=== PATIENT | female | born 1985 | race Caucasian/White ===

== ENCOUNTER 2023-02-17 03:31 | Emergency (ER) | payer MEDICAID, OTHER ==
[~2023-02-17] VITALS: Ht 167.6 cm; Wt 90.0 kg
[2023-02-17 03:36] VITALS: TEMP 97.7
[2023-02-17 04:31] LABS: BASOPHILS % (AUTO) 0.2 % (0.0-2.0); EOSINOPHILS % (AUTO) 0.3 % (1.0-6.0); HEMOGLOBIN 13.4 g/dL (12.0-16.0); LYMPHOCYTES # (AUTO) 1.7 K/uL (1.0-4.8); LYMPHOCYTES % (AUTO) 26.6 % (22.0-44.0); MEAN CORPUSCULAR HEMOGLOBIN 30.6 pg (26.0-34.0); MEAN CORPUSCULAR HGB CONC 34.3 G/dL (31.0-37.0); MEAN CORPUSCULAR VOLUME 89 fL (80-100); MONOCYTES # (AUTO) 0.6 K/uL (0.1-1.0); MONOCYTES % (AUTO) 9.8 % (2.0-9.0); NEUTROPHILS # (AUTO) 4.1 K/uL (1.8-7.7); NEUTROPHILS % (AUTO) 63.1 % (40.0-70.0); PLATELET COUNT (AUTO) 220 K/uL (150-450); RED BLOOD CELL COUNT(AUTO) 4.37 MIL/uL (4.00-5.20); RED CELL DISTRIBUTION WIDTH 13.3 % (11.5-14.5)
[2023-02-17 04:40] LABS: ANION GAP 13 mmol/L (8-16); CALCIUM, TOTAL 8.9 mg/dL (8.8-10.5); CARBON DIOXIDE 24 mmol/L (22-29); CHLORIDE 104 mmol/L (98-107); CREATININE 0.89 mg/dL (0.60-1.30); GLOMERULAR FILTR. RATE CALC > 60 mL/min (>60); GLUCOSE,RANDOM 97 mg/dL (70-110); POTASSIUM 3.6 mmol/L (3.5-5.1); SODIUM SERUM 141 mmol/L (136-145)
[2023-02-17 04:45] LABS: ALANINE AMINOTRANSFERASE 26 U/L (12-78); ALBUMIN 3.8 g/dL (3.4-5.0); ALKALINE PHOSPHATASE 76 U/L (46-116); ASPARTATE AMINOTRANSFERASE 25 U/L (15-37); BILIRUBIN,TOTAL 0.6 mg/dL (0.1-1.0); TOTAL PROTEIN, SERUM 7.4 g/dL (6.4-8.2)
[2023-02-17 08:28] LABS: COVID AG,FIA SOURCE NASAL SWAB
[2023-02-17] MEDS ORDERED: OLANZapine 5 MG TABLET PO ONE (08:30)
[2023-02-17 09:16] VITALS: BP 132/88; PULSE 87; RESP 18
== END 2023-02-17 10:13 | disposition home or self-care (01) ==
LOC: EMS 03:32
DX: R44.0 Auditory hallucinations (principal); F32.A Depression, unspecified; F17.210 Nicotine dependence, cigarettes, uncomplicated; F15.90 Other stimulant use, unspecified, uncomplicated; F12.90 Cannabis use, unspecified, uncomplicated; Z81.8 Family history of other mental and behavioral disorders; Z20.822 Contact with and (suspected) exposure to COVID-19; Z98.890 Other specified postprocedural states
CPT/HCPCS: 99283; 87426; 80053; 85025; G0480

== ENCOUNTER 2023-03-25 14:30 | Inpatient (IN) | payer MEDICAID ==
[~2023-03-25] VITALS: Ht 162.6 cm; Wt 77.6 kg
[2023-03-25] MEDS ORDERED: HALOPERIDOL LACTATE 5 MG/ML VIAL IM ONE (16:15)
[2023-03-25] MEDS ORDERED: LORazepam 2 MG/ML VIAL IM ONE (16:15)
[2023-03-25] MEDS ORDERED: DiphenhydrAMINE HCL 50 MG/ML VIAL IM ONE (16:15)
[2023-03-25] MEDS ORDERED: ZIPRASIDONE MESYLATE 20 MG/VIAL IM ONE (16:45)
[2023-03-25] MEDS ORDERED: LORazepam 2 MG TABLET PO PRN (18:15)
[2023-03-25] MEDS ORDERED: OLANZapine 5 MG RAPDIS TABLET PO PRN (18:15)
[2023-03-25 19:39] LABS: BASOPHILS % (AUTO) 0.1 % (0.0-2.0); EOSINOPHILS % (AUTO) 0.1 % (1.0-6.0); HEMATOCRIT 38.8 % (36-46); HEMOGLOBIN 13.4 g/dL (12.0-16.0); LYMPHOCYTES # (AUTO) 1.5 K/uL (1.0-4.8); LYMPHOCYTES % (AUTO) 15.7 % (22.0-44.0); MEAN CORPUSCULAR HGB CONC 34.5 G/dL (31.0-37.0); MEAN CORPUSCULAR VOLUME 90 fL (80-100); MONOCYTES # (AUTO) 0.5 K/uL (0.1-1.0); MONOCYTES % (AUTO) 5.3 % (2.0-9.0); NEUTROPHILS # (AUTO) 7.4 K/uL (1.8-7.7); NEUTROPHILS % (AUTO) 78.8 % (40.0-70.0); PLATELET COUNT (AUTO) 236 K/uL (150-450); RED BLOOD CELL COUNT(AUTO) 4.31 MIL/uL (4.00-5.20); RED CELL DISTRIBUTION WIDTH 13.8 % (11.5-14.5)
[2023-03-25 19:48] LABS: ANION GAP 15 mmol/L (8-16); CALCIUM, TOTAL 9.1 mg/dL (8.8-10.5); CARBON DIOXIDE 25 mmol/L (22-29); CHLORIDE 103 mmol/L (98-107); CREATININE 0.97 mg/dL (0.60-1.30); GLOMERULAR FILTR. RATE CALC > 60 mL/min (>60); GLUCOSE,RANDOM 107 mg/dL (70-110); POTASSIUM 3.6 mmol/L (3.5-5.1); SODIUM SERUM 143 mmol/L (136-145)
[2023-03-25 19:53] LABS: ALANINE AMINOTRANSFERASE 21 U/L (12-78); ALBUMIN 3.7 g/dL (3.4-5.0); ALKALINE PHOSPHATASE 78 U/L (46-116); ASPARTATE AMINOTRANSFERASE 30 U/L (15-37); BILIRUBIN,TOTAL 0.7 mg/dL (0.1-1.0); TOTAL PROTEIN, SERUM 7.3 g/dL (6.4-8.2)
[2023-03-25 22:24] LABS: COVID AG,FIA SOURCE NASAL SWAB
[2023-03-26 02:00] VITALS: BP 126/72; PULSE 70; RESP 17; TEMP 97.8; O2SAT 98
[2023-03-26] MEDS ORDERED: MAG HYDROX/AL HYDROX/SIMETH ES 30 ML SUSPENSION UDCUP PO PRN (07:15)
[2023-03-26] MEDS ORDERED: DOCUSATE SODIUM 100 MG CAPSULE PO PRN (07:15)
[2023-03-26] MEDS ORDERED: ACETAMINOPHEN 325 MG TABLET PO PRN (07:15)
[2023-03-26] MEDS ORDERED: PETROLATUM,WHITE 28 GM JELLY TP PRN (07:15)
[2023-03-26] MEDS ORDERED: ONDANSETRON HCL 4 MG TABLET PO PRN (07:15)
[2023-03-26] MEDS ORDERED: IBUPROFEN 600 MG TABLET PO PRN (07:15)
[2023-03-26] MEDS ORDERED: OMEPRAZOLE 20 MG CAPSULE PO PRN (07:15)
[2023-03-26] MEDS ORDERED: MAGNESIUM HYDROXIDE SUSPENSION 30 ML UDCUP PO PRN (07:15)
[2023-03-26] MEDS ORDERED: ALBUTEROL SULFATE HFA 90 MCG/PUFF 8 GM INHALER IH PRN (07:15)
[2023-03-26] MEDS ORDERED: LOPERAMIDE HCL 2 MG CAPSULE PO PRN (07:15)
[2023-03-26] MEDS ORDERED: CloNIDine HCL 0.1 MG TABLET PO PRN (07:15)
[2023-03-26] MEDS ORDERED: BACITRACIN 28 GM OINTMENT TP PRN (07:15)
[2023-03-26 09:36] VITALS: BP 106/78; PULSE 92; RESP 18; TEMP 98.2; O2SAT 98
[2023-03-26] MEDS: BENZOCAINE/MENTHOL LOZENGE PO PRN (12:28)
[2023-03-26] MEDS: ZOLPIDEM TARTRATE 10 MG TABLET PO PRN (20:18)
[2023-03-26 21:38] VITALS: BP 118/76; PULSE 85; RESP 18; TEMP 98.1; O2SAT 9
[2023-03-27 08:50] VITALS: RESP 18
[2023-03-27 20:18] VITALS: BP 105/61; PULSE 81; RESP 18; TEMP 97.7; O2SAT 97
[2023-03-27] MEDS: ZOLPIDEM TARTRATE 10 MG TABLET PO PRN (20:30)
[2023-03-27] MEDS: OLANZapine 10 MG TABLET PO SCH (20:33)
[2023-03-28 08:37] VITALS: RESP 18
[2023-03-28 20:21] VITALS: BP 129/84; PULSE 100; RESP 18; TEMP 97.5; O2SAT 98
[2023-03-28] MEDS: OLANZapine 10 MG TABLET PO SCH (20:33)
[2023-03-29 08:40] VITALS: RESP 18
[2023-03-29] MEDS: BENZOCAINE/MENTHOL LOZENGE PO PRN (13:25)
[2023-03-29] MEDS: ZOLPIDEM TARTRATE 10 MG TABLET PO PRN (20:02)
[2023-03-29] MEDS: OLANZapine 10 MG TABLET PO SCH (20:03)
[2023-03-29 21:36] VITALS: RESP 18
[2023-03-30 08:43] VITALS: RESP 18
[2023-03-30 20:23] VITALS: BP 116/76; PULSE 73; RESP 20; TEMP 98.2; O2SAT 92
[2023-03-30] MEDS: ZOLPIDEM TARTRATE 10 MG TABLET PO PRN (20:36)
[2023-03-30] MEDS: OLANZapine 10 MG TABLET PO SCH (21:00)
[2023-03-31 08:09] VITALS: BP_SYST 108; BP_SYST 120; BP_DIAS 61; BP_DIAS 78; PULSE 106; PULSE 75; RESP 17; RESP 18; TEMP 97.4; TEMP 97.8; O2SAT 100; O2SAT 98
[2023-03-31 20:53] VITALS: BP 117/60; PULSE 77; RESP 18; TEMP 98
[2023-03-31] MEDS: OLANZapine 10 MG TABLET PO SCH (21:09)
[2023-03-31] MEDS: ZOLPIDEM TARTRATE 10 MG TABLET PO PRN (21:09)
[2023-04-01 08:36] VITALS: BP 118/84; PULSE 76; RESP 16; TEMP 98; O2SAT 99
[2023-04-01] MEDS: OLANZapine 10 MG TABLET PO SCH (20:11)
[2023-04-01] MEDS: ZOLPIDEM TARTRATE 10 MG TABLET PO PRN (20:11)
[2023-04-01 21:00] VITALS: BP 127/90; PULSE 65; RESP 18; TEMP 97.6; O2SAT 98
[2023-04-02 08:26] VITALS: BP 120/62; PULSE 84; RESP 18; TEMP 98.3; O2SAT 96
[2023-04-02] MEDS: ZOLPIDEM TARTRATE 10 MG TABLET PO PRN (20:31)
[2023-04-02] MEDS: OLANZapine 10 MG TABLET PO SCH (20:31)
[2023-04-02 20:47] VITALS: BP 109/63; PULSE 60; RESP 19; TEMP 97; O2SAT 99
[2023-04-03 08:34] VITALS: BP 104/60; PULSE 75; RESP 17; TEMP 98; O2SAT 99
[2023-04-03] MEDS ORDERED: OLAN10TA74 PO (14:01)
== END 2023-04-03 14:54 | disposition home or self-care (01) | DRG 750 ==
LOC: EMS 14:32 → B3A 03-26 00:03
PROVIDERS: ADMIT Psychiatry & Neurology Psychiatry; ATTEND Psychiatry & Neurology Psychiatry
DX: F25.9 Schizoaffective disorder, unspecified (principal); F15.10 Other stimulant abuse, uncomplicated; F32.A Depression, unspecified; Z20.822 Contact with and (suspected) exposure to COVID-19; G47.00 Insomnia, unspecified; F17.210 Nicotine dependence, cigarettes, uncomplicated; F41.9 Anxiety disorder, unspecified; K59.00 Constipation, unspecified; Z98.891 History of uterine scar from previous surgery
CPT/HCPCS: 80053; 85025; 99285; G0480; J1200; J1630; J2060